=== PATIENT | female | born 1975 | race Caucasian/White ===

== ENCOUNTER → 2019-11-21 11:15 | Outpatient (BNVA) | payer OTHER, SELFPAY | PROVIDERS: Visit Provider Surgery | DX: E66.01 Morbid (severe) obesity due to excess calories (principal); K43.9 Ventral hernia without obstruction or gangrene | CPT/HCPCS: 99204 ==

== ENCOUNTER → 2019-12-19 08:27 | Outpatient (BNVA) | payer OTHER, SELFPAY | PROVIDERS: PCP Nurse Practitioner Family; Visit Provider Surgery | DX: E66.01 Morbid (severe) obesity due to excess calories (principal); Z68.43 Body mass index [BMI] 50.0-59.9, adult; J45.909 Unspecified asthma, uncomplicated; E03.9 Hypothyroidism, unspecified; K43.9 Ventral hernia without obstruction or gangrene; G47.30 Sleep apnea, unspecified; Z99.89 Dependence on other enabling machines and devices | CPT/HCPCS: 99212 ==

== ENCOUNTER → 2020-01-21 08:20 | Outpatient (BNVA) | payer OTHER, SELFPAY | PROVIDERS: PCP Nurse Practitioner Family; Visit Provider Surgery | DX: R16.0 Hepatomegaly, not elsewhere classified (principal); E66.01 Morbid (severe) obesity due to excess calories; J45.909 Unspecified asthma, uncomplicated; G47.30 Sleep apnea, unspecified | CPT/HCPCS: Q3014 ==

== ENCOUNTER → 2020-02-23 08:24 | Outpatient (BNVA) | payer OTHER, SELFPAY | PROVIDERS: PCP Nurse Practitioner Family; Visit Provider Surgery | DX: E66.01 Morbid (severe) obesity due to excess calories (principal); Z68.43 Body mass index [BMI] 50.0-59.9, adult | CPT/HCPCS: Q3014 ==

== ENCOUNTER → 2020-03-19 08:30 | Outpatient (BNVA) | payer OTHER, SELFPAY | PROVIDERS: PCP Nurse Practitioner Family; Visit Provider Surgery | DX: E66.01 Morbid (severe) obesity due to excess calories (principal) | CPT/HCPCS: Q3014 ==

== ENCOUNTER → 2020-04-16 08:27 | Outpatient (BNVA) | payer OTHER, SELFPAY | PROVIDERS: PCP Nurse Practitioner Family; Visit Provider Surgery | DX: E66.01 Morbid (severe) obesity due to excess calories (principal); R16.0 Hepatomegaly, not elsewhere classified | CPT/HCPCS: Q3014 ==